=== PATIENT | male | born 1985 | race Caucasian/White ===

== ENCOUNTER → 2020-08-20 | Outpatient (CLI) | payer OTHER ==
[~2020-08-20] MED LIST: CLARITIN 10MG T10 MG PO; IBUPROFEN800 MG PO; MEDROL DOSEPAK 24 MG PO; METOPROLOL SUCC25 MG PO; NASONEX17 GM; PROAIR DIGIHAL90 MCG INH
== END ==
LOC: HEART 5 08-06 07:30
DX: R07.9 Chest pain, unspecified (principal); R94.39 Abnormal result of other cardiovascular function study
CPT/HCPCS: 78452; 93017; A9502

== ENCOUNTER 2021-12-07 11:59 | Emergency (ER) | payer OTHER | END 2021-12-07 13:25 | disposition home or self-care (01) | LOC: ER1 11:59 | DX: F41.0 Panic disorder [episodic paroxysmal anxiety] (principal); R07.89 Other chest pain; I10 Essential (primary) hypertension; Z86.16 Personal history of COVID-19; Z86.711 Personal history of pulmonary embolism | CPT/HCPCS: 93005; 99283 ==